=== PATIENT | male | born 1990 | race African-American/Black ===

== ENCOUNTER 2022-08-07 12:50 | Inpatient (IN) | payer OTHER ==
[2022-08-07 14:32] VITALS: BMI 28.2
[2022-08-07] MEDS ORDERED: ONDANSETRON *ODT* 4 MG TABLET SL PRN (14:53)
[2022-08-07] MEDS ORDERED: MAGNESIUM HYDROX 2400MG/30ML ORAL SUSPENSION 30 ML CUP PO PRN (14:53)
[2022-08-07] MEDS ORDERED: POLYETHYLENE GLYCOL (HEALTHYLAX) 3350 17 GM PACKET PO PRN (14:53)
[2022-08-07] MEDS ORDERED: MAG HYDROX/AL HYDROX/SIMETH 30 ML UNIT-DOSE CUP PO PRN (14:53)
[2022-08-07] MEDS ORDERED: NALOXONE HCL (KLOXXADO) 8 MG SPRAY NS PRN (14:53)
[2022-08-07] MEDS ORDERED: LOPERAMIDE HCL 2 MG CAPSULE PO PRN (14:53)
[2022-08-07] MEDS ORDERED: ACETAMINOPHEN 325 MG TABLET (FP) PO PRN (14:53)
[2022-08-07] MEDS ORDERED: NICOTINE 10 MG CARTRIDGE (INHALER) IH PRN (14:53)
[2022-08-07] MEDS ORDERED: DICYCLOMINE HCL 10 MG CAPSULE PO PRN (14:53)
[2022-08-07] MEDS ORDERED: BISMUTH SUBSALICYLATE 524 MG/30 ML PO PRN (14:53)
[2022-08-07] MEDS ORDERED: IBUPROFEN 400 MG TABLET (FP) PO PRN (14:53)
[2022-08-07] MEDS ORDERED: BENZOCAINE/MENTHOL (CHLORASEPTIC ) LOZENGE MM PRN (14:53)
[2022-08-07] MEDS: PRENATAL VITAMINS W/ FOLIC ACID TABLET (FP) PO SCH (15:34)
[2022-08-07] MEDS: chlordiazePOXIDE HCL 25 MG CAPSULE PO SCH ×2 (16:43→22:25)
[2022-08-07] MEDS: IBUPROFEN 600 MG TABLET (FP) PO PRN (16:45)
[2022-08-07] MEDS ORDERED: MELATONIN 5 MG TABLETS PO SCH (22:00)
[2022-08-07] MEDS: THIAMINE HCL 100 MG TABLET (FP) PO SCH (22:25)
[2022-08-07] MEDS: METHOCARBAMOL 500 MG TABLET PO PRN (22:27)
[2022-08-08] MEDS: chlordiazePOXIDE HCL 25 MG CAPSULE PO SCH ×2 (06:00→10:41)
[2022-08-08] MEDS: METHOCARBAMOL 500 MG TABLET PO PRN ×2 (06:00→22:12)
[2022-08-08] MEDS: IBUPROFEN 600 MG TABLET (FP) PO PRN ×2 (06:02→16:58)
[2022-08-08] MEDS: PRENATAL VITAMINS W/ FOLIC ACID TABLET (FP) PO SCH (10:40)
[2022-08-08] MEDS ORDERED: diazePAM 5 MG TABLET PO PRN (11:06)
[2022-08-08] MEDS: diazePAM 5 MG TABLET PO SCH ×3 (11:24→22:13)
[2022-08-08] MEDS: LITHIUM CARBONATE 300 MG CAPSULE PO SCH ×2 (11:42→22:12)
[2022-08-08] MEDS: ESCITALOPRAM OXALATE 10 MG TABLET PO SCH (11:42)
[2022-08-08 14:49] LABS: HEMATOCRIT 44.6 % (35.4-49); HEMOGLOBIN 14.4 GM/dL (11.7-16.9); MCH 29.6 pg (25.7-33.7); MCHC 32.3 g/dl (32.0-35.9); MEAN CELL VOLUME 91.4 fl (80-96); MEAN PLT VOLUME 11.2 fl (7.5-11.1); PLATELET COUNT 165 10^3/uL (134-434); RBC 4.88 M/mm3 (4.00-5.60); RDW 13.4 % (11.9-15.9); WHITE BLOOD COUNT 5.9 K/mm3 (4.0-10.0)
[2022-08-08 15:00] LABS: ALBUMIN 3.6 g/dl (3.4-5.0); CALCIUM 9.1 mg/dL (8.5-10.1)
[2022-08-08 15:04] LABS: CREATININE 1.1 mg/dL (0.55-1.3)
[2022-08-08 15:05] LABS: TOT PROT 6.7 g/dl (6.4-8.2)
[2022-08-08 15:06] LABS: BILIRUBIN,TOTAL 0.7 mg/dL (0.2-1)
[2022-08-08] MEDS: THIAMINE HCL 100 MG TABLET (FP) PO SCH (22:12)
[2022-08-08] MEDS: QUEtiapine FUMARATE 200 MG TABLET PO SCH (22:13)
[2022-08-09] MEDS ORDERED: chlordiazePOXIDE HCL 25 MG CAPSULE PO SCH (05:00)
[2022-08-09] MEDS: diazePAM 5 MG TABLET PO SCH ×4 (06:30→22:33)
[2022-08-09] MEDS: PRENATAL VITAMINS W/ FOLIC ACID TABLET (FP) PO SCH (10:24)
[2022-08-09] MEDS: LITHIUM CARBONATE 300 MG CAPSULE PO SCH ×2 (10:24→22:36)
[2022-08-09] MEDS: ESCITALOPRAM OXALATE 10 MG TABLET PO SCH (10:24)
[2022-08-09] MEDS: ACETAMINOPHEN 325 MG TABLET (FP) PO PRN (10:26)
[2022-08-09] MEDS: METHOCARBAMOL 500 MG TABLET PO PRN (22:32)
[2022-08-09] MEDS: QUEtiapine FUMARATE 200 MG TABLET PO SCH (22:33)
[2022-08-09] MEDS: THIAMINE HCL 100 MG TABLET (FP) PO SCH (22:33)
[2022-08-10] MEDS ORDERED: chlordiazePOXIDE HCL 10 MG CAPSULE PO SCH (05:00)
[2022-08-10] MEDS: diazePAM 5 MG TABLET PO SCH ×3 (05:36→22:09)
[2022-08-10] MEDS: METHOCARBAMOL 500 MG TABLET PO PRN ×2 (05:37→22:13)
[2022-08-10] MEDS: LITHIUM CARBONATE 300 MG CAPSULE PO SCH ×2 (10:37→22:08)
[2022-08-10] MEDS: ESCITALOPRAM OXALATE 10 MG TABLET PO SCH (10:37)
[2022-08-10] MEDS: PRENATAL VITAMINS W/ FOLIC ACID TABLET (FP) PO SCH (10:37)
[2022-08-10] MEDS: THIAMINE HCL 100 MG TABLET (FP) PO SCH (22:08)
[2022-08-10] MEDS: QUEtiapine FUMARATE 200 MG TABLET PO SCH (22:08)
[2022-08-10] MEDS: ACETAMINOPHEN 325 MG TABLET (FP) PO PRN (22:11)
[2022-08-11] MEDS ORDERED: chlordiazePOXIDE HCL 10 MG CAPSULE PO SCH (05:00)
[2022-08-11] MEDS ORDERED: diazePAM 5 MG TABLET PO SCH (06:00)
[2022-08-11 09:20] VITALS: BP 121/66; PULSE 70; RESP 18; TEMP 97.2
[2022-08-11] MEDS: METHOCARBAMOL 500 MG TABLET PO PRN (10:18)
[2022-08-11] MEDS: PRENATAL VITAMINS W/ FOLIC ACID TABLET (FP) PO SCH (10:19)
[2022-08-11] MEDS: IBUPROFEN 600 MG TABLET (FP) PO PRN (10:19)
[2022-08-11] MEDS: LITHIUM CARBONATE 300 MG CAPSULE PO SCH (10:19)
[2022-08-11] MEDS: ESCITALOPRAM OXALATE 10 MG TABLET PO SCH (10:19)
[2022-08-12] MEDS ORDERED: chlordiazePOXIDE HCL 10 MG CAPSULE PO ONE (05:00)
[2022-08-12] MEDS ORDERED: diazePAM 5 MG TABLET PO ONE (06:00)
== END 2022-08-11 11:43 | disposition home or self-care (01) | DRG 774 ==
LOC: YASAS 12:50 → Y6N 14:57
PROVIDERS: ADMIT Allergy & Immunology; ATTEND Surgery
PROC: HZ2ZZZZ Detoxification Services for Substance Abuse Treatment (ICD-10-PCS; principal; 2022-08-07)
DX: F10.230 Alcohol dependence with withdrawal, uncomplicated (principal); F14.20 Cocaine dependence, uncomplicated; F12.20 Cannabis dependence, uncomplicated; F31.9 Bipolar disorder, unspecified; F19.282 Other psychoactive substance dependence with psychoactive substance-induced sleep disorder; F41.8 Other specified anxiety disorders; H54.8 Legal blindness, as defined in USA; Z62.810 Personal history of physical and sexual abuse in childhood
CPT/HCPCS: 36415; 80053; 85027; 86780; C9803-CS; U0003; U0005

== ENCOUNTER 2022-10-19 09:38 | Inpatient (IN) | payer OTHER ==
[2022-10-19 09:57] VITALS: BMI 26.9
[2022-10-19] MEDS ORDERED: LOPERAMIDE HCL 2 MG CAPSULE PO PRN (10:30)
[2022-10-19] MEDS ORDERED: NICOTINE 10 MG CARTRIDGE (INHALER) IH PRN (10:30)
[2022-10-19] MEDS ORDERED: ONDANSETRON *ODT* 4 MG TABLET SL PRN (10:30)
[2022-10-19] MEDS ORDERED: ACETAMINOPHEN 325 MG TABLET (FP) PO PRN ×2 (10:30)
[2022-10-19] MEDS ORDERED: NALOXONE HCL (KLOXXADO) 8 MG SPRAY NS PRN (10:30)
[2022-10-19] MEDS ORDERED: DICYCLOMINE HCL 10 MG CAPSULE PO PRN (10:30)
[2022-10-19] MEDS ORDERED: BISMUTH SUBSALICYLATE 262 MG/15 ML BTL PO PRN (10:30)
[2022-10-19] MEDS ORDERED: IBUPROFEN 400 MG TABLET (FP) PO PRN (10:30)
[2022-10-19] MEDS ORDERED: diazePAM 5 MG TABLET PO PRN (10:30)
[2022-10-19] MEDS ORDERED: BENZOCAINE/MENTHOL (CHLORASEPTIC ) LOZENGE MM PRN (10:30)
[2022-10-19] MEDS ORDERED: MAGNESIUM HYDROX 2400MG/30ML ORAL SUSPENSION 30 ML CUP PO PRN (10:30)
[2022-10-19] MEDS ORDERED: IBUPROFEN 600 MG TABLET (FP) PO PRN (10:30)
[2022-10-19] MEDS ORDERED: POLYETHYLENE GLYCOL (HEALTHYLAX) 3350 17 GM PACKET PO PRN (10:30)
[2022-10-19] MEDS ORDERED: MAG HYDROX/AL HYDROX/SIMETH 30 ML UNIT-DOSE CUP PO PRN (10:30)
[2022-10-19] MEDS: PRENATAL VITAMINS W/ FOLIC ACID TABLET (FP) PO SCH (13:04)
[2022-10-19] MEDS: diazePAM 5 MG TABLET PO SCH ×3 (13:07→22:19)
[2022-10-19] MEDS ORDERED: diazePAM 5 MG TABLET ONE (13:08)
[2022-10-19 15:07] LABS: HEMATOCRIT 40.8 % (35.4-49); HEMOGLOBIN 13.6 GM/dL (11.7-16.9); MCH 29.6 pg (25.7-33.7); MCHC 33.2 g/dl (32.0-35.9); MEAN PLT VOLUME 11.9 fl (7.5-11.1); PLATELET COUNT 123 10^3/uL (134-434); RBC 4.59 M/mm3 (4.00-5.60); RDW 14.5 % (11.9-15.9); WHITE BLOOD COUNT 3.5 K/mm3 (4.0-10.0)
[2022-10-19 15:13] LABS: ALBUMIN 3.6 g/dl (3.4-5.0); CALCIUM 9.3 mg/dL (8.5-10.1)
[2022-10-19 15:16] LABS: BLOOD UREA NITROGEN 13.6 mg/dL (7-18)
[2022-10-19 15:17] LABS: CREATININE 1.2 mg/dL (0.55-1.3)
[2022-10-19 15:18] LABS: BILIRUBIN,TOTAL 0.5 mg/dL (0.2-1); TOT PROT 6.6 g/dl (6.4-8.2)
[2022-10-19] MEDS: MELATONIN 5 MG TABLETS PO SCH (22:18)
[2022-10-19] MEDS: THIAMINE HCL 100 MG TABLET (FP) PO SCH (22:19)
[2022-10-19] MEDS: QUEtiapine FUMARATE 100 MG TABLET (FP) PO SCH (22:19)
[2022-10-20] MEDS: diazePAM 5 MG TABLET PO SCH ×4 (05:24→22:09)
[2022-10-20] MEDS: METHOCARBAMOL 500 MG TABLET PO PRN ×2 (10:31→16:39)
[2022-10-20] MEDS: PRENATAL VITAMINS W/ FOLIC ACID TABLET (FP) PO SCH (10:31)
[2022-10-20] MEDS: hydrOXYzine PAMOATE 25 MG CAPSULE (FP) PO PRN ×2 (10:31→16:39)
[2022-10-20] MEDS: MELATONIN 5 MG TABLETS PO SCH (22:09)
[2022-10-20] MEDS: THIAMINE HCL 100 MG TABLET (FP) PO SCH (22:09)
[2022-10-20] MEDS: QUEtiapine FUMARATE 100 MG TABLET (FP) PO SCH (22:09)
[2022-10-21] MEDS: diazePAM 5 MG TABLET PO SCH ×2 (04:59→14:06)
[2022-10-21 09:23] VITALS: RESP 17
[2022-10-21] MEDS: PRENATAL VITAMINS W/ FOLIC ACID TABLET (FP) PO SCH (11:00)
[2022-10-21 12:51] VITALS: BP 153/80; PULSE 87; TEMP 97.6
[2022-10-22] MEDS ORDERED: diazePAM 5 MG TABLET PO SCH (06:00)
[2022-10-23] MEDS ORDERED: diazePAM 5 MG TABLET PO ONE (06:00)
== END 2022-10-21 16:22 | disposition left against medical advice (07) | DRG 770 ==
LOC: YASAS 09:38 → Y6N 12:42
PROVIDERS: ADMIT Allergy & Immunology; ATTEND Surgery
PROC: HZ2ZZZZ Detoxification Services for Substance Abuse Treatment (ICD-10-PCS; principal; 2022-10-19)
DX: F10.230 Alcohol dependence with withdrawal, uncomplicated (principal); F14.20 Cocaine dependence, uncomplicated; F12.20 Cannabis dependence, uncomplicated; F17.210 Nicotine dependence, cigarettes, uncomplicated; F25.8 Other schizoaffective disorders; F31.9 Bipolar disorder, unspecified; F19.280 Other psychoactive substance dependence with psychoactive substance-induced anxiety disorder; F19.282 Other psychoactive substance dependence with psychoactive substance-induced sleep disorder; F19.24 Other psychoactive substance dependence with psychoactive substance-induced mood disorder; H54.62 Unqualified visual loss, left eye, normal vision right eye; Z62.810 Personal history of physical and sexual abuse in childhood; Z59.01 Sheltered homelessness; Z56.0 Unemployment, unspecified
CPT/HCPCS: 36415; 80053; 85027; 86780; C9803-CS; U0003; U0005